=== PATIENT | female | born 1965 | race African-American/Black ===

== ENCOUNTER 2017-10-20 11:07 | Emergency (ER) | payer OTHER ==
[~2017-10-20] VITALS: Ht 167.6 cm; Wt 95.0 kg
[2017-10-20 11:25] VITALS: BP 193/92; PULSE 76; RESP 16; TEMP 98.5; O2SAT 100
[2017-10-20] MEDS ORDERED: ROBA750T PO (11:40)
[2017-10-20] MEDS ORDERED: TRAM50TA PO (11:40)
--- NOTE | 2017-10-20 11:42 | PD ---
HPI Chief Complaint: Back/ Neck Pain or Injury Time Seen by Provider: 11:30 Travel History International Travel<30 days: No Contact w/Intl Traveler<30days: No Traveled to known affect area: No History of Present Illness HPI 52-year-old female presents to the emergency department for evaluation of right low back pain that started yesterday. Patient is a paving and surfacing labourer. She states she was bending down to draw blood. When she stood up, she felt a pop in her right lower back. She states she worked throughout the day. She did take Advil during the night last night. She went to work this morning, but the pain is not improving. Patient denies any fevers or chills. She denies a traumatic injury. No loss of bowel or bladder control. No saddle anesthesias. Patient is not currently on any prescribed medications. She is ambulatory with a steady gait in the emergency department. Patient denies any weakness. Exacerbating factor is movement, ambulation. Alleviating factor is rest, Advil. She states that a coworker did give her a muscle relaxant this morning, which did not improve her pain. Current pain is 9/10, aching, without radiation. 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) Cancer: No Cardiovascular Problems: No High Cholesterol: No Chest Pain: Yes Diabetes: No Diminished Hearing: No Endocrine: No Genitourinary: No Hepatitis: No Hiatal Hernia: No Hypertension: Yes Immune Disorder: No Musculoskeletal: Yes (GANGLION CYST ON LEFTKNEE,DEGENERATIVE JOINT DISEASE) Neurologic: No Psychiatric: No Reproductive: No Respiratory: No Immunizations Current: Yes Thyroid Disease: No PNEUMOCCOCAL Vaccine (Year): 2 Menopausal: Yes : 2 Para: 2 : 0 Past Surgical History AICD: No Gynecologic Surgery: Yes (UTERINE LINING ABLATION) Joint Replacement: No Pacemaker: No Social History Alcohol Use: No Tobacco Use: No Substance Use: No Allergies-Medications (Allergen,Severity, Reaction): Coded Allergies: No Known Allergies (Verified Adverse Reaction, Unknown, 10/20/17) Reported Meds & Prescriptions Reported Meds & Active Scripts Active No Active Prescriptions or Reported Medications Review of Systems Except as stated in HPI: all other systems reviewed are Neg Physical Exam Narrative GENERAL: Well-nourished, well-developed female patient, ambulatory. Afebrile. SKIN: Focused skin assessment warm/dry. HEAD: Normocephalic. Atraumatic. EYES: No scleral icterus. No injection or drainage. NECK: Supple, trachea midline. No JVD or lymphadenopathy. CARDIOVASCULAR: Regular rate and rhythm without murmurs, gallops, or rubs. RESPIRATORY: Breath sounds equal bilaterally. No accessory muscle use. Lungs sounds are clear to auscultation. GASTROINTESTINAL: Abdomen soft, non-tender, nondistended. MUSCULOSKELETAL: No cyanosis, or edema. Bilateral upper and lower extremity strength 5/5. All extremities are neurovascularly intact. BACK: Nontender without obvious deformity. No CVA tenderness. No midline spinal tenderness. She has reproducible tenderness over the right lumbar paraspinal musculature. No clonus. Straight leg raise is positive on the right side. Data Data Last Documented VS Vital Signs Date Time Temp Pulse Resp B/P (MAP) Pulse Ox O2 Delivery O2 Flow Rate FiO2 10/20/17 11:25 98.5 76 16 193/92 (125) 100 Orders Orders Ketorolac Inj (Toradol Inj) (10/20/17 11:45) Orphenadrine Inj (Norflex Inj) (10/20/17 11:45) MDM Medical Decision Making Medical Screen Exam Complete: Yes Emergency Medical Condition: Yes Medical Record Reviewed: Yes Differential Diagnosis Muscle strain versus muscle spasm versus herniated disc Narrative Course 52-year-old female presents to the emergency department for evaluation of right low back pain that started yesterday without traumatic injury. No red flag symptoms. She is ambulatory. This does appear to be a muscle strain. Patient is given Toradol 60 mg IM, Norflex 60 mg IM for pain. Patient is noted to be hypertensive in triage. Patient denies any history of hypertension. She states she does get high blood pressure when she is in pain. She denies any associated symptoms. Patient is instructed to monitor blood pressure follow-up with her primary care physician. Patient will be discharged with a short-term prescription for tramadol, Robaxin. She is to continue Advil as needed. Patient verbalizes agreement and understanding. The patient was discharged in stable condition with instructions, including return instructions and follow up instructions. Diagnosis Primary Impression: Low back strain Qualified Codes: S39.012A - Strain of muscle, fascia and tendon of lower back , initial encounter Referrals: Primary Care Physician call for appointment Patient Instructions: General Instructions Departure Forms: Tests/Procedures, Work Release Enter return to work date: Oct 23, 2017 Additional Instructions: Continue Advil as directed as needed for [id number] pain. Take tramadol for moderate to severe pain. Do not drive after taking tramadol. Take Robaxin as instructed as needed. Heating pad on low for 20 minutes 4-5 times daily. Follow-up with your primary care physician. Return to the emergency department for any acute worsening of symptoms. Med/Other Pt SpecificInfo: Prescription(s) given Scripts Methocarbamol (Robaxin) 750 Mg Tab 750 MG PO TID Y for MUSCLE SPASM, #21 TAB 0 Refills Prov: Racheal Mcneil 10/20/17 Tramadol (Tramadol) 50 Mg Tab 50 MG PO Q6H Y for PAIN, #16 TAB 0 Refills Prov: Racheal Mcneil 10/20/17 Disposition: 01 DISCHARGE HOME Condition: Stable Racheal Mcneil Oct 20, 2017 11:42
[2017-10-20] MEDS ORDERED: ORPHENADRINE INJ 60 MG/2 ML AMP IM ONE (11:45)
[2017-10-20] MEDS ORDERED: KETOROLAC TROMETHAMINE 60 MG/2 ML (IM) VIAL IM ONE (11:45)
== END 2017-10-20 12:03 | disposition home or self-care (01) ==
LOC: NEPK 11:07
DX: S39.012A Strain of muscle, fascia and tendon of lower back, initial encounter (principal); M19.90 Unspecified osteoarthritis, unspecified site; I20.9 Angina pectoris, unspecified; I10 Essential (primary) hypertension; X58.XXXA Exposure to other specified factors, initial encounter
CPT/HCPCS: 96372; 99283; J1885; J2360

== ENCOUNTER 2017-11-04 20:06 | Emergency (ER) | payer OTHER ==
[~2017-11-04] VITALS: Ht 165.1 cm; Wt 97.7 kg
[~2017-11-04 20:06] MED LIST: ROBA750T PO; TRAM50TA PO
[2017-11-04 20:18] VITALS: BP 172/88; PULSE 87; RESP 22; TEMP 98.1; O2SAT 98
--- NOTE | 2017-11-04 20:32 | PD ---
HPI Chief Complaint: Cold / Flu Symptoms Time Seen by Provider: 20:26 Travel History International Travel<30 days: No Contact w/Intl Traveler<30days: No Traveled to known affect area: No History of Present Illness HPI Patient comes to the emergency department complaining of cough, rhinorrhea, congestion, sore throat that began around 11:00 this morning. Patient reports using cough drops seem to help ease her throat pain. Patient reports a burning sensation throughout her chest when she coughs or takes a deep breath. Patient denies any known fevers, shortness of breath, abdominal pain, nausea, vomiting, headaches, or known sick contacts. Patient denies anything making symptoms worse. Severity is mild. Denies any known sick contacts. 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) Cancer: No Cardiovascular Problems: No High Cholesterol: No Chest Pain: Yes Diabetes: No Diminished Hearing: No Endocrine: No Genitourinary: No Hepatitis: No Hiatal Hernia: No Hypertension: Yes Immune Disorder: No Musculoskeletal: Yes (GANGLION CYST ON LEFTKNEE,DEGENERATIVE JOINT DISEASE) Neurologic: No Psychiatric: No Reproductive: No Respiratory: No Immunizations Current: Yes Thyroid Disease: No PNEUMOCCOCAL Vaccine (Year): 2 ?: Not Menopausal: Yes : 2 Para: 2 : 0 Past Surgical History AICD: No Gynecologic Surgery: Yes (UTERINE LINING ABLATION) Joint Replacement: No Pacemaker: No Social History Alcohol Use: No Tobacco Use: No Substance Use: No Allergies-Medications (Allergen,Severity, Reaction): Coded Allergies: No Known Allergies (Verified Adverse Reaction, Unknown, 10/20/17) Reported Meds & Prescriptions Reported Meds & Active Scripts Active Ventolin Hfa 18 GM Inh (Albuterol Sulfate) 90 Mcg/Act Aer 2 Puff INH Q4H PRN Flonase Nasal [place] (Fluticasone Nasal [place]) 50 Mcg/Act [place] 100 Mcg EACH NARE DAILY Robaxin (Methocarbamol) 750 Mg Tab 750 Mg PO TID PRN Tramadol (Tramadol HCl) 50 Mg Tab 50 Mg PO Q6H PRN Review of Systems Except as stated in HPI: all other systems reviewed are Neg Physical Exam Narrative GENERAL: Well-developed, overly nourished, in no acute distress, and non-ill appearing. SKIN: Focused skin assessment warm and dry. HEAD: Atraumatic. Normocephalic. EYES: Pupils equal and round. EOMI. No scleral icterus. No injection or drainage. ENT: No nasal bleeding. Mucous membranes pink and moist. Tympanic membranes pearly carrillo bilaterally. Posterior pharynx nonerythematous without exudate. Uvula is midline. Patient reports tenderness to palpation of facial sinuses. Clear rhinorrhea noted on exam. NECK: Trachea midline. No cervical lymphadenopathy. Supple. No nuclear rigidity. CARDIOVASCULAR: Regular rate and rhythm. No murmur appreciated. RESPIRATORY: No accessory muscle use. No respiratory distress. Clear to auscultation. Breath sounds equal bilaterally. Dry cough noted on exam. MUSCULOSKELETAL: No obvious deformities. No clubbing. No cyanosis. No edema. Full range of motion. NEUROLOGICAL: Awake and alert. No obvious cranial nerve deficits. Motor grossly within normal limits. Normal speech. PSYCHIATRIC: Appropriate mood and affect; insight and judgment normal. Data Data Last Documented VS Vital Signs Date Time Temp Pulse Resp B/P (MAP) Pulse Ox O2 Delivery O2 Flow Rate FiO2 11/04/17 20:18 98.1 87 22 172/88 (116) 98 Orders Orders Chest, Pa & Lat (11/04/17 ) Group A Rapid Strep Screen (11/04/17 20:30) Influenzae A/B Antigen (11/04/17 20:30) Strep Culture (Group A) (11/04/17 20:45) Ed Discharge Order (11/04/17 21:38) MDM Medical Decision Making Medical Screen Exam Complete: Yes Emergency Medical Condition: Yes Interpretation(s) Chest x-ray read by the radiologist shows: No evidence of acute cardiopulmonary disease. Influenza and rapid strep are both negative. Differential Diagnosis Influenza, viral pharyngitis, strep pharyngitis, pneumonia, bronchitis, URI, viral syndrome Narrative Course Patients symptom complex of cough and congestion is consistent with viral URI. The patient is non-ill appearing and is in no respiratory distress and comfortable. The patient moves air well and oxygen saturations are normal. There is no clinical evidence to suggest pneumonia at this time. Plan of care and management were discussed with the patient who agreed with plan. The patient was instructed to follow up with their physician and instructed to return if worsens, progressively worsening shortness of breath or difficulty breathing, persistent fever, chest pains or discomfort, inability to keep medication or fluids down with or without vomiting, or as needed. Patient in no obvious distress upon re-evaluation. All pertinent laboratory/ Radiology result(s) discussed with patient. Patient was asked if they wanted to speak to my attending, which the patient did not wish to do at this time. Any questions/concerns in reference to patient diagnosis/condition discussed and clarified prior to patient's discharge. Reinforced sheer importance of close follow up with patient's primary physician or primary care clinic. Instructed patient to return to ED immediately, if symptoms return/worsen. Patient showed understanding of above instructions. Further instructions and recommendations were detailed in discharge paperwork. Patient ambulated without difficulty out of ED at discharge. Diagnosis Primary Impression: URI, acute Referrals: [facility] Patient Instructions: General Instructions, Upper Respiratory Infection (ED) Additional Instructions: Follow-up with your primary care physician in 3-5 days for reevaluation. Take all medication as prescribed. Use [id number] Tylenol and/or ibuprofen as needed for pain and/or fever control. Follow instructions on the packaging. Drink plenty of non-caffeinated nonalcoholic fluids. Return to the emergency department if symptoms get worse. Med/Other Pt SpecificInfo: Prescription(s) given Scripts Albuterol 18 GM Inh (Ventolin Hfa 18 GM Inh) 90 Mcg/Act Aer 2 PUFF INH Q4H Y for SHORTNESS OF BREATH, #1 INHALER 0 Refills Prov: Kavin Mckeon MD 11/04/17 Fluticasone Nasal [place] (Flonase Nasal [place]) 50 Mcg/Act [place] 100 MCG EACH NARE DAILY for Allergies, #1 BOTTLE 0 Refills Prov: Kavin Mckeon MD 11/04/17 Disposition: 01 DISCHARGE HOME Condition: Stable Jerod Gomez Nov 04, 2017 20:32
--- NOTE | 2017-11-04 21:18 | RADRPT ---
EXAM DATE/TIME: 11/04/2017 20:42 [facility] COMPARISON: No previous studies available for comparison. INDICATIONS : Shortness of breath. MEDICAL HISTORY : None. SURGICAL HISTORY : None. ENCOUNTER: Initial ACUITY: 1 day PAIN SCORE: 8/10 LOCATION: Bilateral chest FINDINGS: PA and lateral views of the chest demonstrate the lungs to be symmetrically aerated without evidence of mass, infiltrate or effusion. The cardiomediastinal contours are unremarkable. Osseous structure s are intact. CONCLUSION: No evidence of acute cardiopulmonary disease. Chris Hassan MD on November 04, 2017 at 21:15 Board Certified Radiologist. This report was verified electronically.
[2017-11-04] MEDS ORDERED: FLUT1SPR5 EACH NARE (21:33)
[2017-11-04] MEDS ORDERED: VENTAER INH (21:33)
== END 2017-11-04 22:07 | disposition home or self-care (01) ==
LOC: NEPK 20:06
DX: J06.9 Acute upper respiratory infection, unspecified (principal); D64.9 Anemia, unspecified; M19.90 Unspecified osteoarthritis, unspecified site; F32.9 Major depressive disorder, single episode, unspecified; I10 Essential (primary) hypertension; Z79.51 Long term (current) use of inhaled steroids
CPT/HCPCS: 71046; 87081; 87804; 87880; 99284

== ENCOUNTER 2018-06-21 03:50 | Observation (INO) ==
--- NOTE | 2018-06-21 04:24 | ED ---
HPI General Chief complaint: Chest Pain Stated complaint: Chest tightness Time Seen by Provider: 06/21/18 04:04 Source: patient, RN notes reviewed and old records reviewed Mode of arrival: ambulatory History of Present Illness HPI narrative: 53yF presenting with chest pain. The patient states that she's been having "pressure-like" substernal chest pain which radiates into her back intermittently for the past several days. Yesterday morning, she had another episode of gradual-onset substernal pressure which has been constant since then , not made better or worse by anything, associated with dyspnea and "heartburn" . Denies lightheadedness/ dizziness, diaphoresis, palpitations, cough, nausea or vomiting. She has chronic lower extremity edema for which she takes a "water pill", unchanged from baseline. The patient was seen in the chest pain center in 09/2015, at that time had an EF of 51% and no ischemic changes on stress test. Also has a history of anemia with distant blood transfusions (80s and 90s, prior to uterine ablation). Family history significant for father with [place] in his 40s. Related Data Home Medications Medication Instructions Recorded Confirmed furosemide [Lasix] 20 mg PO DAILY 06/21/18 06/21/18 Allergies Allergy/AdvReac Type Severity Reaction Status Date / Time No Known Allergies Allergy Verified 06/21/18 03:52 Review of Systems ROS: all other systems reviewed are negative Constitutional Denies fever(s) Eyes Denies blurry vision ENT Denies nasal congestion Cardiovascular Reports chest pain and Reports dyspnea Respiratory Denies cough and Reports dyspnea Gastrointestinal Denies nausea Genitourinary Denies dysuria Musculoskeletal Denies back pain Neurologic Denies confusion Psychiatric Denies confusion PMFSH History History Provided By: Patient Medical History Medical History Anemia (Acute) Edema, lower extremity (Acute) Surgical history unknown (Acute) Surgical History Surgical History Hx of prior ablation treatment (Acute) Social History Social History Substance History: No History of Abuse Smoking Status: Never smoker How Often Do You Have a Drink Containing Alcohol: Never Recent Travel in [facility] within the Last 8 Weeks: No Recent Out of Country Travel within the Last 8 Weeks: No Immunization History Tetanus Immunization: <5 Years Exam Const Nutritional Appearance: obese Other: Appears uncomfortable [facility] Head: normocephalic and atraumatic Face and sinus: normal facial exam Eyes General: appearance normal, both eyes and all related structures Pupils: PERRL Chest Chest: normal inspection of the chest Resp Effort & Inspection: normal respiratory effort Auscultation: no rhonchi and no wheezes Cardio Rate: regular rate Rhythm: regular rhythm GI Inspection: non-distended Palpation: soft and nontender Skin General: no rashes or lesions noted Other: No diaphoresis Neuro General: alert, awake, oriented x3 and no focal motor deficits Extrem Other: Non-pitting edema to bilateral ankles, no calf tenderness Psych Affect: normal affect Course Initial Documented Vital Signs Pulse Rate 68 06/21/18 03:52 Respiratory Rate 21 06/21/18 03:52 Blood Pressure 184/87 H 06/21/18 03:52 Pulse Oximetry 100 06/21/18 03:52 Last Documented Vital Signs Pulse Rate 82 06/21/18 04:41 Respiratory Rate 18 06/21/18 04:41 Blood Pressure 132/79 06/21/18 04:41 Pulse Oximetry 99 06/21/18 04:41 Clinical Decision Support HEART Score Questions History: Moderately suspicious EKG: Non-specific repolarization disturbance Age: 45-64 years Risk Factors: 1-2 Risk Factors Initial Troponin: Normal Limit Heart Score HEART Score: 4 PERC Rule Age greater than or equal to 50: Yes HR greather than or equal to 100: No Sa02 on room air is less than 95%: No Unilateral Leg Swelling: No Hemoptysis: No Recent Surgery or Trauma: No Prior PE or DVT: No Hormone Use: No Wells' Criteria Questions Clinical Signs and Symptoms of DVT: No PE is primary diagnosis or equally likely: No Heart Rate greater than 100: No Immobilized at least 3 days or Surgery in previous 4 weeks: No Previous, objectively diagnosed PE or DVT: No Hemoptysis: No Malignancy with treatment within 6 months or palliative: No Wells' Criteria Score Wells' Criteria Score: 0 Medical Decision Making MDM Narrative Medical decision making narrative: Assessment: 53yF presenting with chest pain Plan: EKG and monitor CXR Labs ASA, NTG Addendum: Patient reports improvement in chest pain (now 2-3/10) after SL nitro x 1. Her workup shows some EKG changes which are new, trop negative x 1, labs otherwise unremarkable. Her HEART score is 4 and her most recent cardiac evaluation was 2.5 years ago. I explained these results to the patient as well as plan to keep her for observation; she understands and agrees. Medical Screen Exam Complete: Yes Emergency Medical Condition: Yes Differential Diagnosis Differential Diagnosis: Differential diagnosis includes, but is not limited to: ACS, stable angina, GERD, pleuritis, pericarditis, esophageal spasm Medical Records Medical records reviewed: Yes I reviewed the patient's medical records. Previous stress test/ cardiology notes from 09/2015 Lab Data Lab results reviewed: Yes I reviewed the patient's lab results. Result diagrams: 06/21/18 04:30 06/21/18 04:30 Lab Results 06/21/18 06/21/18 Range/Units 04:30 04:30 WBC 5.7 (4.0-11.0) th/mm3 RBC 4.79 (4.00-5.30) mil/mm3 Hgb 12.6 (11.6-15.3) gm/dL Hct 40.0 (35.0-46.0) % MCV 83.4 (80.0-100.0) fL MCH 26.4 L (27.0-34.0) pg MCHC 31.6 L (32.0-36.0) % RDW 14.2 (11.6-17.2) % Plt Count 151 (150-450) th/mm3 MPV 10.0 (7.0-11.0) fL Neut % (Auto) 61.8 (16.0-70.0) % Lymph % (Auto) 24.6 (9.0-44.0) % [place] % (Auto) 10.6 H (0.0-8.0) % Eos % (Auto) 2.5 (0.0-4.0) % Baso % (Auto) 0.5 (0.0-2.0) % Neut # (Auto) 3.5 (1.8-7.7) th/mm3 Lymph # (Auto) 1.4 (1.0-4.8) th/mm3 [place] # (Auto) 0.6 (0.0-0.9) th/mm3 Eos # (Auto) 0.1 (0.0-0.4) th/mm3 Baso # (Auto) 0.0 (0.0-0.2) th/mm3 WBC Differential . Differential Comment Auto diff final Sodium 142 (136-145) meq/L Potassium 4.7 (3.5-5.1) meq/L Chloride 111 H (98-107) meq/L Carbon Dioxide 27.5 (21.0-32.0) meq/L Anion Gap 4 L (5-15) meq/L BUN 9 (7-18) mg/dL Creatinine 0.73 (0.50-1.00) mg/dL Estimated GFR Greater than 89 (>89) mL/min Random Glucose 91 (74-106) mg/dL Calcium 8.3 L (8.5-10.1) mg/dL Magnesium 2.2 (1.5-2.5) mg/dL Total Bilirubin 0.5 (0.2-1.0) mg/dL AST 27 (15-37) U/L ALT 25 (10-53) U/L Alkaline Phosphatase 118 H (45-117) U/L Total Creatine Kinase 133 (26-192) U/L Troponin I Less than 0.02 L (0.02-0.05) ng/mL Total Protein 7.8 (6.4-8.2) g/dL Albumin 3.2 L (3.4-5.0) g/dL Imaging Data Radiologist's impression: Chest X-Ray 06/21/18 04:11 CONCLUSION: No evidence of acute cardiopulmonary disease. ECG Data Attestation: I personally reviewed and interpreted this ECG as follows: Interpretation: Rate: 73 BPM Rhythm: Sinus [place]: Borderline left Intervals: Normal intervals, no blocks, QTc 378 ms Q waves: III, aVL T waves: Inverted in I and aVL ST segments: No elevations or depressions Impression: Non-specific EKG, T wave inversions in I and aVL as new when compared to EKG from 08/10/2016. Discharge Plan Discharge Disposition Patient Disposition: 30 Still Patient Discharge Condition Condition: Stable Discharge Details Diagnosis: Chest pain Physicians Team ED Provider: Dai Chappell Primary Care Provider: Delores King Attending Provider: Terrance Zapata Rxs /Orders / Referrals /Forms Prescriptions: No Action furosemide [Lasix] 20 mg Tablet 20 mg PO DAILY RF: 0 Discharge Instructions Patient Printed Instructions: Chest Pain (ED) Discharge Interventions Interventions: Vital Signs Last Done: 06/21/18 04:01 Status ED Status: Admitted Observation Patient
[2018-06-21 04:47] LABS: Baso % (Auto) 0.5 % (0.0-2.0); Eos # (Auto) 0.1 th/mm3 (0.0-0.4); Eos % (Auto) 2.5 % (0.0-4.0); Hemoglobin 12.6 gm/dL (11.6-15.3); Lymph # (Auto) 1.4 th/mm3 (1.0-4.8); Lymph % (Auto) 24.6 % (9.0-44.0); Mean Corpuscular HGB Conc 31.6 % (32.0-36.0); Mean Corpuscular Hemoglobin 26.4 pg (27.0-34.0); Mean Corpuscular Volume 83.4 fL (80.0-100.0); Mono # (Auto) 0.6 th/mm3 (0.0-0.9); Mono % (Auto) 10.6 % (0.0-8.0); Neut # (Auto) 3.5 th/mm3 (1.8-7.7); Neut % (Auto) 61.8 % (16.0-70.0); Platelet Count 151 th/mm3 (150-450); Red Blood Count 4.79 mil/mm3 (4.00-5.30); Red Cell Distribution Width 14.2 % (11.6-17.2); White Blood Count 5.7 th/mm3 (4.0-11.0)
--- NOTE | 2018-06-21 04:50 | XR ---
EXAM DATE: 06/21/2018 4:47 AM EDT AGE/SEX: 53 years / Female INDICATIONS: Short of breath, chest tightness. CLINICAL DATA: This is the patient's initial encounter. Patient reports that signs and symptoms have been present for 1 day and indicates a pain score of 0/10. MEDICAL/SURGICAL HISTORY: None. None. COMPARISON: [facility], CHEST PA & LAT, 11/04/2017. . FINDINGS: A single AP view of the chest demonstrates the lungs to be symmetrically aerated without evidence of mass, infiltrate or effusion. The cardiomediastinal contours are unremarkable. Osseous structures a re intact. CONCLUSION: No evidence of acute cardiopulmonary disease. Electronically signed by: Chris Hassan MD 06/21/2018 4:49 AM EDT
[2018-06-21] MEDS ORDERED: Acetaminophen 325 MG Tablet PO ONE (04:52)
[2018-06-21 05:07] LABS: Alanine Aminotransferase 25 U/L (10-53); Albumin 3.2 g/dL (3.4-5.0); Alkaline Phosphatase 118 U/L (45-117); Anion Gap 4 meq/L (5-15); Aspartate Aminotransferase 27 U/L (15-37); Blood Urea Nitrogen 9 mg/dL (7-18); Calcium 8.3 mg/dL (8.5-10.1); Carbon Dioxide 27.5 meq/L (21.0-32.0); Chloride 111 meq/L (98-107); Creatine Kinase 133 U/L (26-192); Glomerular Filtration Rate Greater Than 89 mL/min (>89); Glucose,Random 91 mg/dL (74-106); Magnesium 2.2 mg/dL (1.5-2.5); Potassium 4.7 meq/L (3.5-5.1); Sodium 142 meq/L (136-145); Total Protein 7.8 g/dL (6.4-8.2)
[2018-06-21] MEDS ORDERED: Acetaminophen 500 MG Tablet PO PRN (05:13)
[2018-06-21 05:22] LABS: Activated Partial Thrombo Time 27.1 sec (24.3-30.1); Prothrombin Time 10.3 sec (9.8-11.6)
--- NOTE | 2018-06-21 09:28 | P.HPCA ---
History of Present Illness Primary Care Physician: Delores King MD Chief Complaint: Chest pain History of Present Illness: This is a 53-year-old female that presents to ED via private vehicle with complaint of 4 days of intermittent chest and back pain. First episode began 4 days ago while at work. 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 It lasted about an hour. She was short of breath with it and at same time she also developed back pain. Back pain is worsened with movement. She woke up the next morning and was feeling better. Chest pain not recur. However little after waking up the back pain recurred and lasted basically throughout the day. Is worse with movements. She had another episode of chest discomfort yesterday while receiving blood at the lab. Also lasts about an hour. At that time she was advised to go to the ED. She has had cardiac evaluation in the past. Upon viewing record she had a nonischemic Lexiscan September 2015. Her PCP is Dr. King. Denies hypertension, hyperlipidemia, diabetes, and CAD. She takes Lasix for chronic edema bilateral ankles. Lifetime non-smoker. States that her father age 41 of an [place]. - Diagnosis (1) Chest pain (2) Obesity Review of Systems General: Patient denies fevers, chills, and recent travel. HEENT: Patient denies headache, sore throat, difficulty swallowing. Cardiovascular: Has the chest discomfort as mentioned above. Denies sensation of heart beating rapidly or irregularly. No syncope. Respiratory: She was short of breath. Denies inspirational chest discomfort. Denies coughing wheezing or hemoptysis. GI: Patient denies nausea, vomiting, diarrhea, abdominal pain, bloody stools. Musculoskeletal: Patient denies joint pain or edema. Denies calf pain or edema. Neurovascular: Planes of back pain. Worsened with movement. Patient denies numbness, tingling, weakness in extremities. Denies headache. Endocrine: Denies polyuria and polydipsia. Hematologic: Denies easy bruising. Skin: Denies rash or itching. PMFSH - History History Provided By: Patient - Medical History Medical History: Medical History (Last Reviewed 06/21/18 @ 04:19 by Dai Chappell DO) Anemia Edema, lower extremity Surgical history unknown - Surgical History Surgical History: Surgical History (Last Reviewed 06/21/18 @ 04:19 by Dai Chappell DO) Hx of prior ablation treatment - Tobacco History Smoking Status: Never smoker - Alcohol History How Often Do You Have a Drink Containing Alcohol: Never - Substance Use History Substance History: No History of Abuse - Travel History Recent Travel in the [place] Within the Last 8 Weeks: No Recent Travel Out of the Country Within the Last 8 Weeks: No - Immunization History Tetanus Immunization: <5 Years Medications and Allergies Active Medications: Active Medications Acetaminophen (Tylenol) 500 mg PO Q4H PRN PRN Reason: HEADACHE Aspirin (Aspirin) 325 mg PO DAILY COUNT INCLUDES THE [facility] Nitroglycerin (Nitrostat Sl) 0.4 mg SL Q5M PRN PRN Reason: CHEST PAIN Ondansetron HCl (Zofran Inj) 4 mg IV.PUSH Q6H PRN PRN Reason: NAUSEA Sodium Chloride (Ns Flush) 2 ml IV.FLUSH UNSCH PRN PRN Reason: FLUSH AFTER USING IV ACCESS Sodium Chloride (Ns Flush) 2 ml IV.FLUSH BID COUNT INCLUDES THE [facility] Last Admin: 06/21/18 08:10 Dose: 2 ml Sodium Chloride (Ns Flush) 2 ml IV.FLUSH PRN PRN PRN Reason: FLUSH AFTER USING IV ACCESS Allergies Allergy/AdvReac Type Severity Reaction Status Date / Time No Known Allergies Allergy Verified 06/21/18 03:52 Home Medications Medication Instructions Recorded Confirmed Type furosemide [Lasix] 20 mg PO DAILY 06/21/18 06/21/18 History Exam Vital signs: Vital Signs 06/21/18 03:52 06/21/18 04:01 06/21/18 04:38 Pulse Rate 68 78 Respiratory Rate 21 18 Blood Pressure 184/87 H Pulse Oximetry 100 100 100 06/21/18 04:41 06/21/18 07:40 Pulse Rate 82 64 Respiratory Rate 18 14 Blood Pressure 132/79 139/71 Pulse Oximetry 99 98 Intake & Output 06/20/18 06/21/18 06/21/18 18:59 06:59 18:59 Weight 145.15 kg Narrative: GENERAL: This is a well-nourished, well-developed patient, in no apparent distress. Patient speaks in clear complete sentences. Patient is pleasant. HEENT: Head is atraumatic and normocephalic. Neck is supple without lymphadenopathy and trachea is midline. No JVD or carotid bruits. CARDIOVASCULAR: Regular rate and rhythm without murmurs, gallops, or rubs. RESPIRATORY: Clear to auscultation. Breath sounds equal bilaterally. No wheezes , rales, or rhonchi. Chest wall is tender. No use of accessory muscles. GASTROINTESTINAL: Abdomen is nontender, nondistended. Abdomen soft. No obvious pulsatile mass or bruit. No CVA tenderness. Strong femoral pulses bilaterally. Normal bowel sounds in all quadrants. MUSCULOSKELETAL: Patient is moving upper and lower extremities freely. No calf tenderness or edema, no Homans sign. Strong pulses in upper and lower extremities. NEUROLOGICAL: Patient is alert and oriented. Cranial nerves 2-12 are grossly intact. No focal deficits and speech is clear. SKIN: No rash and turgor is normal. Results 06/21/18 04:30 06/21/18 04:30 Cardiac Enzymes 06/21/18 Range/Units 04:30 AST 27 (15-37) U/L CK-MB (CK-2) 1.0 (0.5-3.6) ng/mL Troponin I Less than 0.02 L (0.02-0.05) ng/mL Coagulation 06/21/18 Range/Units 05:05 PT 10.3 (9.8-11.6) sec APTT 27.1 (24.3-30.1) sec CBC 06/21/18 Range/Units 04:30 WBC 5.7 (4.0-11.0) th/mm3 RBC 4.79 (4.00-5.30) mil/mm3 Hgb 12.6 (11.6-15.3) gm/dL Hct 40.0 (35.0-46.0) % Plt Count 151 (150-450) th/mm3 Neut # (Auto) 3.5 (1.8-7.7) th/mm3 Lymph # (Auto) 1.4 (1.0-4.8) th/mm3 [place] # (Auto) 0.6 (0.0-0.9) th/mm3 Eos # (Auto) 0.1 (0.0-0.4) th/mm3 Baso # (Auto) 0.0 (0.0-0.2) th/mm3 Comprehensive Metabolic Panel 06/21/18 Range/Units 04:30 Sodium 142 (136-145) meq/L Potassium 4.7 (3.5-5.1) meq/L Chloride 111 H (98-107) meq/L Carbon Dioxide 27.5 (21.0-32.0) meq/L BUN 9 (7-18) mg/dL Creatinine 0.73 (0.50-1.00) mg/dL Calcium 8.3 L (8.5-10.1) mg/dL AST 27 (15-37) U/L ALT 25 (10-53) U/L Alkaline Phosphatase 118 H (45-117) U/L Total Protein 7.8 (6.4-8.2) g/dL Albumin 3.2 L (3.4-5.0) g/dL Intake and Output 06/20/18 06/21/18 06/21/18 22:59 06:59 14:59 Other: Weight 145.15 kg - Imaging and Cardiology Imaging: Impressions Chest X-Ray 06/21/18 04:11 CONCLUSION: No evidence of acute cardiopulmonary disease. EKG interpretations - EKG EKG shows: sinus rhythm Caprini VTE Risk Assessment Caprini VTE Risk Assessment: No/Low Risk (score <= 1) Caprini Risk Assessment Model: Point Value = 1 Point Value = 2 Point Value = 3 Point Value = 5 Age 41-60 Minor surgery BMI > 25 kg/m2 Swollen legs Varicose veins or History of unexplained or recurrent spontaneous Oral contraceptives or hormone replacement Sepsis (< 1 month) Serious lung disease, including pneumonia (< 1 month) Abnormal pulmonary function Acute myocardial infarction Congestive heart failure (< 1 month) History of inflammatory bowel disease Medical patient at bed rest Age 61-74 Arthroscopic surgery Major open surgery (> 45 min) Laparoscopic surgery (> 45 min) Malignancy Confined to bed (> 72 hours) Immobilizing plaster cast Central venous access Age >= 75 History of VTE Family history of VTE Factor V Leiden Prothrombin [id number] Lupus anticoagulant Anticardiolipin antibodies Elevated serum homocysteine Heparin-induced thrombocytopenia Other congenital or acquired thrombophilia Stroke (< 1 month) Elective arthroplasty Hip, pelvis, or leg fracture Acute spinal cord injury (< 1 month) Prophylaxis Regimen: Total Risk Factor Score Risk Level Prophylaxis Regimen 0-1 Low Early ambulation 2 Moderate Order ONE of the following: *Sequential Compression Device (SCD) *Heparin 5000 units SQ BID 3-4 Higher Order ONE of the following medications: *Heparin 5000 units SQ TID *Enoxaparin/Lovenox 40 mg SQ daily (WT < 150 kg, CrCl > 30 mL/min) *Enoxaparin/Lovenox 30 mg SQ daily (WT < 150 kg, CrCl > 10-29 mL/min) *Enoxaparin/Lovenox 30 mg SQ BID (WT < 150 kg, CrCl > 30 mL/min) AND/OR *Sequential Compression Device (SCD) 5 or more Highest Order ONE of the following medications: *Heparin 5000 units SQ TID (Preferred with Epidurals) *Enoxaparin/Lovenox 40 mg SQ daily (WT < 150 kg, CrCl > 30 mL/min) *Enoxaparin/Lovenox 30 mg SQ daily (WT < 150 kg, CrCl > 10-29 mL/min) *Enoxaparin/Lovenox 30 mg SQ BID (WT < 150 kg, CrCl > 30 mL/min) AND *Sequential Compression Device (SCD) Assessment and Plan - Assessment (1) Chest pain Code(s): R07.9 - Chest pain, unspecified Status: Acute (2) Obesity Code(s): E66.9 - Obesity, unspecified Status: Acute - Plan * Chest pain: Patient will have serial cardiac enzymes and EKGs for ruling out purposes. She has been seen by Dr. Parker of cardiology in the chest pain center. She will undergo a Lexiscan and be discharge of nonischemic with instructions to follow-up with PCP. Return to ED for interval issues. * Obesity: Patient counseled on importance of diet, excess, weight loss. Patient is stable at this time. She is agreeable to this plan.
[2018-06-21 09:42] LABS: Creatine Kinase 68 U/L (26-192)
[2018-06-21] MEDS ORDERED: Regadenoson Inj 0.4 MG/5 ML Syringe IV.PUSH ONE (13:35)
--- NOTE | 2018-06-21 14:56 | NM ---
EXAM DATE: 06/21/2018 2:49 PM EDT AGE/SEX: 53 years / Female INDICATIONS:Angina. . Sub-sternal chest pain radiating to the back with dyspnea for several days. CLINICAL DATA: This is the patient's initial encounter. Patient reports that signs and symptoms have been present for 4 - 6 days and indicates a pain score of 5/10. MEDICAL/SURGICAL HISTORY: Anemia. . Ablation. COMPARISON: [facility] [place], MYOCARDIAL PERF PHARM SPECT, 10/12/2015. . DOSE: 11 mCi Tc 99m Myoview at rest 35 mCi [id number] at stress 0.4 mg Lexiscan STRESS SYMPTOMS: Asymptomatic. EJECTION FRACTION: 67 % TECHNIQUE: The patient underwent pharmacologic stress with infusion of prescribed dose. Continuous ECG tracing was monitored during stress. Gated SPECT imaging was performed after stress and conventi onal SPECT imaging was performed at rest. The examination was performed on a SPECT/CT scanner, both attenuation and non-corrected datasets were reviewed. FINDINGS: Distribution: The maximum perfused segment at stress is in the posterior lateral mid wall. Perfusion Study: The pattern of perfusion at stress is within normal limits. Gated Study: There are intact wall motion and wall thickening without hypokinetic or dyskinetic segm ents. The ejection fraction is calculated at 67%. RISK CATEGORY: Low (<1% Annual Motality Rate) CONCLUSION: 1. Unremarkable myocardial perfusion scan Electronically signed by: Osito Stewart MD 06/21/2018 2:55 PM EDT
--- NOTE | 2018-06-21 17:14 | TR ---
Date Performed: 06/21/2018 Time Performed: 13:22:59 DOCTOR: Makenzie Parker DRUG LIST: CLINICAL HISTORY: REASON FOR TEST: REASON FOR ENDING: OBSERVATION: CONCLUSION: Lexiscan stress test was performed under standard four minute protocol. Radionuclid e was injected one minute prior to ending the test. No electrocardiographic abormalities were present to suggest ischemia. Nuclear imaging and interpretation are pending. COMMENTS: Lexiscan stress test was performed under standard four minute protocol. Radionuclide was injected one minute prior to ending the test. No electrocardiographic abormalities were present t o suggest ischemia. Nuclear imaging and interpretation are pending.
--- NOTE | 2018-06-21 17:17 | ECG ---
Date Performed: 06/21/2018 Time Performed: 07:35:32 PTAGE: 53 years EKG: SINUS BRADYCARDIA BORDERLINE ECG PREVIOUS TRACING : 06/21/2018 04.03 Since previous tracing, no significant change noted DOCTOR: Makenzie Parker Interpretating Date/Time 06/21/2018 17:16:10
--- NOTE | 2018-06-21 17:18 | ECG ---
Date Performed: 06/21/2018 Time Performed: 04:03:03 PTAGE: 53 years EKG: Sinus rhythm INDETERMINATE AXIS LOW QRS VOLTAGE IN EXTREMITY LEADS ABNORMAL QRS-T ANGLE ABNORMAL ECG Since PREVIOUS TRACING , no significant change noted PREVIOUS TRACIN08/10/2016 18.35 DOCTOR: Makenzie Parker Interpretating Date/Time 06/21/2018 17:16:34
[2018-06-22] MEDS ORDERED: Aspirin 325 MG Tablet PO SCH (09:00)
== END 2018-06-21 17:34 | disposition home or self-care (01) ==
LOC: NEPE 03:50 → NEDA 03:50 → NEPFCDU 09:50
PROVIDERS: ADMIT Internal Medicine Cardiovascular Disease; ATTEND Internal Medicine Cardiovascular Disease